=== PATIENT | male | born 1965 | race Hispanic/Latino ===

== ENCOUNTER 2017-10-02 14:11 | Emergency (ER) | payer OTHER ==
[2017-10-02] MEDS ORDERED: IBUPROFEN 600 MG TABLET ONE ×2 (15:12→15:17)
== END 2017-10-02 15:46 | disposition home or self-care (01) ==
LOC: EDH 14:11
DX: M54.5 Low back pain (principal); M54.6 Pain in thoracic spine; Z72.0 Tobacco use; V49.49XA Driver injured in collision with other motor vehicles in traffic accident, initial encounter; Y93.89 Activity, other specified; Y92.89 Other specified places as the place of occurrence of the external cause; Y99.8 Other external cause status
CPT/HCPCS: 72070; 72100